=== PATIENT | female | born 1935 | race Caucasian/White ===

== ENCOUNTER 2018-04-28 13:32 | Observation (INO) | payer MEDICARE, MEDICAID ==
[~2018-04-28] VITALS: Ht 157.5 cm; Wt 79.4 kg
[2018-04-28] MEDS ORDERED: KLOR-CON M2020 MEQ PO (16:23)
[2018-04-28] MEDS ORDERED: FAMOTIDINE10 MG PO (16:23)
[2018-04-28 16:24] VITALS: BP 124/73; BMI 32.1
[2018-04-28 16:34] VITALS: BP 124/73
[2018-04-28 19:00] VITALS: BP 120/53
[2018-04-29] VITALS: BP 108/45
[2018-04-29 05:48] LABS: ANION GAP 12.5 mmol/L (8-16); CALCIUM 7.8 mg/dL (8.5-10.1); CARBON DIOXIDE 31.3 mmol/L (21.0-32.0); CREATININE - SERUM 1.5 mg/dL (0.6-1.3)
[2018-04-29 05:55] VITALS: BP 112/52
[2018-04-29 06:33] LABS: POTASSIUM - SERUM 2.8 mmol/L (3.5-5.1)
[2018-04-29 08:40] VITALS: BP 132/48
[2018-04-29 10:13] VITALS: Ht 157.5 cm; Wt 79.4 kg
--- NOTE | 2018-04-29 13:40 | HP ---
PATIENT: SANIA HERNANDEZ MEDICAL RECORD: [id number] ACCOUNT: [id number] LOCATION:[id number] : 33 ADMISSION DATE: 04/28/18 PCP: LU CARMEN HISTORY AND PHYSICAL EXAMINATION DATE OF ADMISSION: Actually observation, 04/28/2018 CHIEF COMPLAINT: Cough, weakness, and palpitations. HISTORY OF PRESENT ILLNESS: This is an 82-year-old white female who is followed by Zoila Mullen, one of our nurse practitioners at [facility]. She has been having cough and congestion for the last 2-3 weeks. She has felt so sick that she has not been able to swallow her potassium pills and has not taken any of her potassium for over a week. She feels she can swallow other things, but the potassium pill is a little large. She was seen by Zoila in the office today, her CBC looked okay. Her basic metabolic panel was all okay except her potassium was low at 2.1. Her creatinine was 1.59. She is admitted into the hospital for potassium replacement and telemetry. She has been seen by Dr. Rueda in the past for her history of cardiac arrhythmias with a pacemaker, not sure how long it has been since she has been seen there. PAST MEDICAL HISTORY: Again, hypokalemia. Cardiac arrhythmias, arthritis. PAST SURGICAL HISTORY: She has had hysterectomy, carpal tunnel release, cholecystectomy, and knee replaced. HABITS: Never smoked. No alcohol or drugs. ALLERGIES: TO MORPHINE. SOCIAL HISTORY: She is retired and lives with her oldest son and his . FAMILY HISTORY: Noncontributory. REVIEW OF SYSTEMS: GENERAL: No major weight changes. HEENT: No particular sinus or allergy problems. RESPIRATORY: No history of emphysema or asthma. CARDIAC: See above history with arrhythmias. GASTROINTESTINAL: Has some dyspepsia. GENITOURINARY: No significant problems there. MUSCULOSKELETAL: A few joint aches and pains. NEUROLOGIC: No seizures or migraines. PSYCHIATRIC: Denies depression or melancholia. PHYSICAL EXAMINATION: VITAL SIGNS: Temperature 97.0, pulse 75, respirations 18, blood pressure 124/73, O2 sat 95%. GENERAL: She is awake and alert. She does not appear to be in acute distress. SKIN: Warm and dry. HEENT: Grossly within normal limits. NECK: Supple. No bruits. HEART: Regular rate and rhythm with occasional ectopic beats noted. ABDOMEN: Soft, flat, nontender. EXTREMITIES: No edema. HISTORY AND PHYSICAL [id number] SANIA HERNANDEZ IMAGING: Chest x-ray was done in our office and it showed normal heart size, no bony abnormalities, no suspicious mass or infiltrate. LABORATORY DATA: CBC in our office, white count 11,280, hemoglobin 14.9, platelets 163,000. Basic Metabolic Panel: Sodium 137, potassium 2.1, chloride 96, CO2 of 27, BUN 7, creatinine 1.59, glucose 200, calcium 8.7. EKG was done, showed normal sinus rhythm, frequent PACs. ASSESSMENT: 1. Hypokalemia. 2. Cardiac arrhythmias. 3. Sick sinus syndrome, status post pacemaker. PLAN: We will replenish potassium. Will have cough medicine available as needed, recheck potassium tomorrow. Cardiology has been consulted. Other tests or procedures are as warranted. TRANSINT:[id number] Voice Confirmation ID: [id number] DOCUMENT ID: [id number] ERAN AHMADI MD at 1340 CC: [id number] DICTATION DATE: 04/28/181900 FLAME BURNER: 04/28/18 193 ADM IN [facility] [address] [id number]
--- NOTE | 2018-04-29 15:25 | MORECARE ---
CASE MANAGEMENT DISCHARGE SUMMARY PATIENT: SANIA HERNANDEZ UNIT: [id number] ADM DATE: 04/28/18 AGE: 82 : 34 SEX: F ROOM/BED: D.2201 AUTHOR: RADHA PAULINO PHYSICIAN: REFERRING PHYSICIAN: ERAN AHMADI MD DATE OF SERVICE: 04/29/18 Discharge Plan Patient Name: SANIA HERNANDEZ [facility] [facility] 1935 Planned Disposition: Anticipated Discharge Date: Discharge Date: Expected LOS: Initial Reviewer: [email or web address] Initial Review Date: 04/28/2018 Generated: 04/29/18 4:25 pm DCP- Discharge Planning Updated by [email or web address]: Fernanda Webber on 04/29/18 2:[address] CESPEDES SERVED AND EXPLAINED TO PATIENT AND DAUGHTER Coverage Notice Reviewer: [email or web address] - Fernanda Webber Notice Issued Date-Time: 04/29/2018 15:15 Notice Type: Medicare Outpatient Observation Notice Notice Delivered To: Family Member Relationship to Patient: Daughter Cadd Manager Name: SANIA HERNANDEZ Delivery Method: HAND - Hand Delivered Rocio Days: Prior Verbal Notification: Recipient Understood Notice: Yes Recipient Signature: Yes Med Rec Note Co-signed by Attending: Coverage Notice Comment: Patient Name: SANIA HERNANDEZ Page [id number] at 1525 All edits/amendments must be made on the electronic document DICTATION DATE: 04/29/18 1525 COMBER FIXER: ASTER 04/29/18 1525 RPT#: [id number] DC DATE: STATUS: ADM IN [facility] [address] [place] [address] END OF REPORT
[2018-04-29 16:21] VITALS: BP 121/52
[2018-04-29] MEDS ORDERED: ROBITUSSIN AC (WITH PO (17:37)
== END 2018-04-29 18:51 | disposition home or self-care (01) ==
LOC: D.SDCHOLD 13:32 → D.MS 13:32 → OBSVTIME 13:34 → D.MS 15:04
PROVIDERS: ADMIT Family Medicine
DX: E87.6 Hypokalemia (principal); R00.2 Palpitations; Z95.0 Presence of cardiac pacemaker

== ENCOUNTER 2019-09-12 23:51 | Emergency (ER) | payer MEDICARE, MEDICAID ==
[~2019-09-12] VITALS: Ht 157.5 cm; Wt 75.0 kg
[~2019-09-12 23:51] MED LIST: FAMOTIDINE10 MG PO; KLOR-CON M2020 MEQ PO; ROBITUSSIN AC (WITH PO
[2019-09-13 00:03] VITALS: Ht 157.5 cm; Wt 75.0 kg
[2019-09-13 00:10] LABS: HEMATOCRIT 30.9 % (36.0-48.0); HEMOGLOBIN 10.5 g/dL (12-16); MCH 29.5 pg (26.0-34.0); MCV 86.8 fL (80.0-100.0); RBC 3.56 10x6/uL (4.00-5.40); RDW 16.3 % (11.5-14.5); WBC 20.2 10x3/uL (4.8-10.8)
[2019-09-13 00:11] LABS: MEAN PLATELET VOLUME 12.4 fL (7.4-10.4); PLATELET COUNT 32 10x3/uL (130-400)
[2019-09-13 00:23] LABS: INR 2.19 (0.85-1.17)
[2019-09-13 00:24] LABS: APTT 44.8 SECONDS (22.8-39.4)
[2019-09-13 00:31] LABS: ALBUMIN 2.6 g/dL (3.4-5.0); ALKALINE PHOSPHATASE 81 U/L (30-120); ALT (SGPT) 63 U/L (10-68); AMYLASE - SERUM 70 U/L (25-115); BILIRUBIN - TOTAL 1.22 mg/dL (0.2-1.3); CALCIUM 7.4 mg/dL (8.5-10.1); CARBON DIOXIDE 22.2 mmol/L (21.0-32.0); CHLORIDE - SERUM 97 mmol/L (98-107); CREATININE - SERUM 1.9 mg/dL (0.6-1.3); LIPASE 221 U/L (73-393); PROTEIN - SERUM 5.4 g/dL (6.4-8.2); SODIUM 131 mmol/L (136-145); UREA NITROGEN 25 mg/dL (7-18); eGFR NON AFRICAN AMERICAN 27 mL/min (90-120)
[2019-09-13 00:38] LABS: LYMPHOCYTES 2 % (15-50); MONOCYTES 6 % (2-11); NEUTROPHILS 39 % (40-80)
[2019-09-13 00:39] LABS: PLATELET ESTIMATE DECREASED
[2019-09-13 00:42] LABS: CALC OSMOLALITY 269 mosm/kg (275-300); GLUCOSE 149 mg/dL (74-106)
[2019-09-13 00:44] LABS: POTASSIUM - SERUM 2.6 mmol/L (3.5-5.1); TROPONIN-I < 0.017 ng/mL (0.000-0.060)
[2019-09-13 01:10] LABS: BILIRUBIN NEGATIVE (NEGATIVE); GLUCOSE NEGATIVE (NEGATIVE); KETONE NEGATIVE (NEGATIVE); NITRITE NEGATIVE (NEGATIVE); SPECIFIC GRAVITY 1.015 (1.005-1.020); UROBILINOGEN NORMAL (NORMAL)
[2019-09-13 01:58] VITALS: BP 104/58
== END 2019-09-13 01:58 | disposition other institution (70) ==
LOC: D.ER 23:51
PROVIDERS: Emergency Medicine
DX: K92.2 Gastrointestinal hemorrhage, unspecified (principal); D62 Acute posthemorrhagic anemia; E87.6 Hypokalemia; D68.2 Hereditary deficiency of other clotting factors; Z79.1 Long term (current) use of non-steroidal anti-inflammatories (NSAID); D69.6 Thrombocytopenia, unspecified; R55 Syncope and collapse; Z95.0 Presence of cardiac pacemaker

== ENCOUNTER 2019-11-27 16:05 | Emergency (ER) | payer MEDICARE, MEDICAID ==
[~2019-11-27] VITALS: Ht 157.5 cm; Wt 68.2 kg
[2019-11-27 16:09] VITALS: Ht 157.5 cm; Wt 68.2 kg
[2019-11-27 18:10] LABS: ANION GAP 11.7 mmol/L (8-16); CALCIUM 7.7 mg/dL (8.5-10.1); CARBON DIOXIDE 25.3 mmol/L (21.0-32.0); CREATININE - SERUM 1.4 mg/dL (0.6-1.3)
[2019-11-27 18:15] LABS: ALBUMIN 2.6 g/dL (3.4-5.0); BILIRUBIN - TOTAL 0.41 mg/dL (0.2-1.3); PROTEIN - SERUM 6.4 g/dL (6.4-8.2)
[2019-11-27 18:19] LABS: HEMATOCRIT 31.9 % (36.0-48.0); HEMOGLOBIN 10.8 g/dL (12-16); MCH 27.6 pg (26.0-34.0); MCHC 33.9 g/dL (31.0-37.0); MCV 81.6 fL (80.0-100.0); MEAN PLATELET VOLUME 9.9 fL (7.4-10.4); PLATELET COUNT 134 10x3/uL (130-400); RBC 3.91 10x6/uL (4.00-5.40); RDW 17.4 % (11.5-14.5); WBC 6.1 10x3/uL (4.8-10.8)
[2019-11-27 18:45] VITALS: BP 120/57
[2019-11-27 18:54] LABS: LYMPHOCYTES 21 % (15-50); MONOCYTES 42 % (2-11); NEUTROPHILS 34 % (40-80); PLATELET ESTIMATE DECREASED
== END 2019-11-27 19:08 | disposition home or self-care (01) ==
LOC: D.ER 16:05
PROVIDERS: Emergency Medicine
DX: Z97.8 Presence of other specified devices (principal)

== ENCOUNTER 2020-01-22 07:24 | Outpatient (CLI) | payer MEDICARE, MEDICAID ==
[~2020-01-22] VITALS: Ht 154.9 cm; Wt 68.2 kg
--- NOTE | ~2020-01-22 | HEMODYNAMI ---
PATIENT:SANIA HERNANDEZ MEDICAL RECORD: [id number] : 33 [id number] ADMISSION DATE: 01/22/20 Generatedon:01/22/202011:50 Patient name: SANIA HERNANDEZ Patient #: [id number] SSN: : Date of study: 01/22/2020 Page: Of Hemodynamic Procedure Report Patient Data Patient Demographics Procedure consent was obtained First Name: SANIA Gender: Female Last Name: MARY : 1935 Patient #: [id number] Age: 84 year(s) Race: Unknown Additional ID: [id number] Contact details Address: [address] [place] [address] State: [place] City: [facility] [place] Zip code: [address] Past Medical History Allergies Allergen Reaction Date Comments Reported Morphine 01/22/2020 Admission Admission Data Admission Date: 01/22/2020 Admission Time: 7:24 Procedure Procedure Types Cath Procedure Peripheral Cath Diagnostic Procedure Miscellaneous Pleurex Remove Pleurex Pleural Cath Procedure Description Procedure Date Procedure Date: 01/22/2020 Procedure Start Time: 11:35 Procedure End Time: 11:49 Procedure Staff Name Function Sarmad Mcclain MD Performing Physician SAUD HENRY RT Monitor Sawyer Duong RT Scrub Poly Saldivar RN Nurse Procedure Data Cath Procedure Fluoroscopy Diagnostic fluoroscopy Total fluoroscopy Time: 0.1 time: 0.1 min min Procedure Medications Medication Administration Route Dosage Heparin Flush Bag added to field 2 bags (1000units/500ml NS) Lidocaine 1% added to field 20 Ancef (1Gm/50ml NS) I.V.P.B 1 g Versed I.V. 1 mg Fentanyl I.V. 50 mcg Hemodynamics Rest Heart Rate: 87 (bpm) Snapshots Pre Cath Intra NCS Post Cath Vital Signs Time Heart Resp etCO2 NIBP (mmHg) Rhythm Pain Sedation Rate (ipm) (mmHg) Status Level (bpm) 11:36:27 78 26 25 138/83(108) NSR 0 (11) 10(A) , No pain 11:40:40 77 12 21.2 143/66(111) NSR 0 (11) 10(A) , No pain 11:45:29 73 15 24.2 137/72(103) NSR 0 (11) 9(A) , No pain 11:49:33 87 19 22.7 130/106(125) NSR 0 (11) 9(A) , No pain Medications Time Medication Route Dose Verified Delivered Reason Notes Eff ectiveness by by 11:41:54 Heparin Flush added 2 Sarmad Bañuelos used for Bag to bags Johny Mcclain procedure (1000units/500ml field MD MD HER) 11:42:05 Lidocaine 1% added 20ml Sarmad Bañuelos for local to vial Johny Mcclain anesthetic field MD [place] 11:42:19 Ancef (1Gm/50ml I.V.P.B 1 g Sarmad Pang Per NS) Johny Saldivar RN physician 11:42:34 Versed I.V. 1 mg Sarmad Saldivar RN, MD 11:42:44 Fentanyl I.V. 50 Sarmad Poly mcg Johny Saldivar RN, MD Procedure Log Time Note 11:20:38 Sawyer Duong RT (R) (CV) sent for patient. Start room use. 11:20:39 Time tracking: Regular hours (M-F 7:00 - 5:00) 11:20:43 Plan of Care:Hemodynamics will remain stable., Cardiac rhythm will remain stable., Comfort level will be maintained., Respiratory function will remain adequate., Patient/ family verbilizes understanding of procedure., Procedure tolerated without complication., Recovers from procedure without complications.. 11:20:48 Patient received from Outpatients to IR Alert and oriented. Tansferred to table in Supine position. 11:20:50 Signed procedure consent form obtained from patient. 11:20:50 Warm blankets applied, and aleta hugger turned on for patient comfort. 11:20:54 Correct patient and procedure confirmed by team. 11:20:55 ECG and BP/O2 sat monitors applied to patient. 11:20:56 - 11:21:04 H&P Date Dictated: 01/22/2020 H&P Addendum completed by physician on day of procedure. (MUST COMPLETE FOR ALL OUTPATIENTS). 11:21:05 Pre-procedure instructions explained to patient. 11:21:06 Pre-op teaching completed and patient verbalized understanding. 11:21:15 Patient allergic to Morphine 11::17 Is the patient allergic to Iodine/contrast media? No. 11:27:17 Patient diabetic? No. 11:27:20 Is patient on blood thinner?No 11:27:22 ----Pre-sedation anethsthesia assessment.---- 11::24 Previous problem with sedation/anesthesia? No ? 11::27 Snore? Yes 11:27:29 Sleep apnea? Yes 11::30 Deviated septum? No 11::32 Opens mouth fully? Yes 11:27:33 Sticks out tongue? Yes 11::35 Airway obstruction? No ? 11::38 Dentures? No ? 11:27:39 - 11:27:47 Right chest area was prepped with chlora-prep and draped in sterile fashion 11::48 Alarms reviewed by Martin Orr ::48 Sharps counted by scrub and verified by [email or web address] 11:27:50 - 11:34:38 Physician arrived 11:34:43 --------ALL STOP TIME OUT------ 11:34:43 Final Timeout: patient, procedure, and site verified with staff and physician. All members of the team are in agreement. 11:34:45 Right chest site verified by team. 11:34:50 Fire Safety Assessment: A--An alcohol-based skin anteseptic being used preoperatively., C--Open oxygen or nitrous oxide is being used. 11:35:25 - 11:35:26 Baseline sample Acquired. 11:35:26 Vital chart was started 11:35:28 Full Disclosure recording started 11:35:31 - 11:35:34 Procedure started. 11:35:36 Use device set IR Diagnostic 11:35:37 Bag Decanter (2002S) opened to sterile field. 11:35:37 Sterile Angiographic Pack opened to sterile field. 11:35:38 Tegaderm 4 x 4 (1626W) opened to sterile field. 11:35:58 Local anesthetic to Chest area with Lidocaine 1% by Sarmad Mcclain MD.INITIAL ACCESS ONLY 11:41:54 Heparin Flush Bag (1000units/500ml NS) 2 bags added to field was administered by Sarmad Mcclain MD; used for procedure; Verbal order read back and verified. 11:42:05 Lidocaine 1% 20ml vial added to field was administered by Sarmad solorzano MD; for local anesthetic; Verbal order read back and verified. 11:42:19 Ancef (1Gm/50ml NS) 1 g I.V.P.B was administered by Poly Saldivar RN; Per physician; Verbal order read back and verified. 11:42:34 Versed 1 mg I.V. was administered by Poly Saldivar RN; ; Verbal order read back and verified. 11:42:44 Fentanyl 50 mcg I.V. was administered by Poly Saldivar RN; ; Verbal order read back and verified. 11:43:02 Procedure ended.(Physican Out) 11:43:49 Fluoroscopy time 00.10 minutes. 11:43:52 Dose Area Product 1 mGy/cm. 11:43:58 Sharps counted by scrub and verified by R.N. 11:44:09 Post-op/insertion site Right Chest area dressed using a vaseline gauze and Tegaderm. 11:44:13 Procedure and supply charges have been captured, reviewed, submitted an d are correct. 11:49:50 Procedure ended. 11:49:50 Full Disclosure recording stopped 11:50:22 Vital chart was stopped Device Usage Item Name Manufacture Quantity Catalog Hospital Part Current Minimal Lot# / Number Charge Number Stock Stock Serial# Code Bag Decanter Microtek 1 [id number] () [employer] Sterile Cardinal 1 [id number] 5 Angiographic Health Pack Tegaderm 4 x 3M 1 [id number] 4 ([id number]) Signature Audit [place] Stage Time Signature Unsigned Intra-Procedure 01/22/2020 SAUD HENRY RT 11:50:16 AM (R) [facility] [address] [place] [address]
[2020-01-22 07:56] LABS: ANION GAP 10.6 mmol/L (8-16); CALCIUM 8.6 mg/dL (8.5-10.1); CARBON DIOXIDE 28.4 mmol/L (21.0-32.0); CREATININE - SERUM 1.2 mg/dL (0.6-1.3)
[2020-01-22 08:13] LABS: HEMATOCRIT 36.3 % (36.0-48.0); HEMOGLOBIN 11.9 g/dL (12-16); MCH 27.8 pg (26.0-34.0); MCHC 32.8 g/dL (31.0-37.0); MCV 84.8 fL (80.0-100.0); MEAN PLATELET VOLUME 10.2 fL (7.4-10.4); PLATELET COUNT 157 10x3/uL (130-400); RBC 4.28 10x6/uL (4.00-5.40); RDW 18.8 % (11.5-14.5); WBC 7.2 10x3/uL (4.8-10.8)
[2020-01-22 08:15] LABS: APTT 35.6 SECONDS (22.8-39.4); INR 1.36 (0.85-1.17); PROTIME 16.6 SECONDS (11.6-15.0)
[2020-01-22 08:55] LABS: LYMPHOCYTES 57 % (15-50); MONOCYTES 6 % (2-11); NEUTROPHILS 37 % (40-80)
[2020-01-22 08:56] LABS: PLATELET ESTIMATE NORMAL
[2020-01-22] MEDS ORDERED: MAG 6464 MG PO (09:35)
[2020-01-22] MEDS ORDERED: FUROSEMIDE20 MG PO (09:35)
[2020-01-22] MEDS ORDERED: STERAPRED DS 1010 MG PO (09:36)
[2020-01-22] MEDS ORDERED: PROTONIX40 MG PO (09:36)
[2020-01-22] MEDS ORDERED: PROPAFENONE HC150 MG PO (09:37)
[2020-01-22 09:51] VITALS: BP 111/54; Ht 154.9 cm; Wt 68.2 kg
--- NOTE | 2020-01-22 17:52 | NUR ---
1350IV REMOVED AND PRESSURE HELD. INSTRUCTIONS GIVEN
== END 2020-01-22 14:10 | disposition home or self-care (01) ==
LOC: D.SP 07:24 → D.CT 08:00 → D.SP 14:10
PROVIDERS: Radiology Diagnostic Radiology; ATTEND Internal Medicine Pulmonary Disease
DX: J90 Pleural effusion, not elsewhere classified (principal); G62.9 Polyneuropathy, unspecified; I12.9 Hypertensive chronic kidney disease with stage 1 through stage 4 chronic kidney disease, or unspecified chronic kidney disease; N18.30 Chronic kidney disease, stage 3 unspecified; I50.30 Unspecified diastolic (congestive) heart failure; J98.11 Atelectasis; K76.0 Fatty (change of) liver, not elsewhere classified; I34.0 Nonrheumatic mitral (valve) insufficiency; K21.9 Gastro-esophageal reflux disease without esophagitis; Z95.0 Presence of cardiac pacemaker; M19.90 Unspecified osteoarthritis, unspecified site; M79.7 Fibromyalgia

== ENCOUNTER → 2020-08-24 10:00 | Outpatient (CLI) | payer MEDICARE, MEDICAID ==
[2020-03-21 12:01] VITALS: BMI 28.4
[~2020-08-24 10:00] MED LIST changes: +CALCIUM 600 +1 EAC3 PO; +FUROSEMIDE20 MG PO; +MAG 6464 MG PO; +PROPAFENONE HC150 MG PO; +PROTONIX40 MG PO; +STERAPRED DS 1010 MG PO
== END | disposition home or self-care (01) ==
LOC: D.RAD 10:00
PROVIDERS: ATTEND Internal Medicine Pulmonary Disease
DX: R06.09 Other forms of dyspnea (principal)